=== PATIENT | male | born 2005 | race Caucasian/White ===

== ENCOUNTER 2024-11-20 15:19 | Emergency (ER) | payer SELFPAY ==
[2024-11-20 15:21] VITALS: BP 128/84
--- NOTE | 2024-11-20 16:17 | ED.GENMED ---
History of Present Illness
<Myesha Medina, DO - Last Filed: 11/20/24 16:23>
General
Chief Complaint: Skin Surface Trauma
Time Seen by Provider: 11/20/24 15:51
<Eloise Flood MD, Resident - Last Filed: 11/20/24 16:47>
General
Source: patient
History of Present Illness
History of Present Illness:
Patient was cleaning the floor with a broom stick that was bent, and accidentally snapped off with the extra pressure he applied on the floor to clean and no sharp edge of the distal fragment of broom ran through his right forearm skin crease at the
elbow leading to a laceration wound of about 2 X 0.4cm. Wound edges are clean, with some exposure of adipose tissue. His last tetanus shot was unknown, when he was a kid.
No known past medical history.
Past History
<Eloise Flood MD, Resident - Last Filed: 11/20/24 16:47>
Past History
ED Past Medical History: None and Other (dental issues, frequent dentist work. )
ED Past Surgical History: None
Social History
Tobacco: Non-smoker
Alcohol: None
Drug: None
Personal: Single
Living: with family
Family History
Family History: Unable to obtain (not pertinent)
Review of Systems
<Eloise Flood MD, Resident - Last Filed: 11/20/24 16:47>
Review of Systems
Allergies reviewed?: No
Other source history: family
All Other Systems: ROS reviewed and negative except as documented in HPI and ROS
Constitutional: Reports no symptoms
EENT: Reports no symptoms
Respiratory: Reports no symptoms
Skin: Reports other (Laceration wound on the arm.)
Neurological: Reports no symptoms
Phy Exam
<Eloise Flood MD, Resident - Last Filed: 11/20/24 16:47>
Physical Exam
Physical Exam:
See below
General Physical Exam
General Presentation: well appearing and no apparent distress
General age: appears stated age
General Skin: warm and other (Laceration wound of 2 x 0.4cm noted on the medial aspect of right forearm.)
General Habitus: normal
General Mental: alert
General Hydration: appears well hydrated
Cardiovascular Exam
Cardiovascular Exam: regular rate/rhythm, no gallop, no murmur, normal peripheral pulses and no carotid bruit
Pulmonary Exam
Pulmonary Exam: lungs clear, no respiratory distress, no rales, no crackles and no rhonchi
Gastrointestinal Exam
Gastrointestinal Exam: normal bowel sounds, non tender, soft and non distended
Musculoskeletal Exam
Musculoskeletal Exam: full ROM (in the right elbow, shoulder, intact sensations. )
Course
<Myesha Medina, DO - Last Filed: 11/20/24 16:23>
Vital Signs
Initial and Last Documented VS:
Initial Vital Signs
Temp Pulse Resp BP Pulse Ox
98.3 F 101 16 128/84 98
11/20/24 15:21 11/20/24 15:21 11/20/24 15:21 11/20/24 15:21 11/20/24 15:21
Last Documented Vital Signs
Temp Pulse Resp BP Pulse Ox
98.3 F 101 16 128/84 98
11/20/24 15:21 11/20/24 15:21 11/20/24 15:21 11/20/24 15:21 11/20/24 15:21
<Eloise Flood MD, Resident - Last Filed: 11/20/24 16:47>
Vital Signs
Initial and Last Documented VS:
Initial Vital Signs
Temp Pulse Resp BP Pulse Ox
98.3 F 101 16 128/84 98
11/20/24 15:21 11/20/24 15:21 11/20/24 15:21 11/20/24 15:21 11/20/24 15:21
Last Documented Vital Signs
Temp Pulse Resp BP Pulse Ox
98.3 F 101 16 128/84 98
11/20/24 15:21 11/20/24 15:21 11/20/24 15:21 11/20/24 15:21 11/20/24 15:21
Procedures
<Eloise Flood MD, Resident - Last Filed: 11/20/24 16:47>
Laceration Closure
Right Middle Anterior Medial Proximal Ulnar Arm:
Status of Wound: clean
Size of Wound in cm: 2
Description of Wound Edges: sharp and flap-well vascularized
Preparation: cleaned with saline
Anesthesia: 2% Lidocaine with epi
Revision/Debridement: routine- no revision
Type of Closure: single layer closure and interrupted sutures
Skin Closure Material: 4-0 nylon
Number of sutures: 4
<Eloise Flood MD, Resident - Last Filed: 11/20/24 16:47>
MDM/Problems Addressed
Differential Diagnosis Includes:
Laceration wound.
MDM/Problems Addressed:
With sutures.
<Eloise Flood MD, Resident - Last Filed: 11/20/24 16:47>
*Critical Care Note
Total Time (30-74mins, 75-104mins- exclusive of procedures): Not Applicable
<Eloise Flood MD, Resident - Last Filed: 11/20/24 16:47>
Comment
Comment:
Nonhealing, spontaneous suture dehiscence, wound infection, sepsis.
Tetanus shot given, reviewed with patient to limit the stretching, hyperextension of the hand.
Advised to follow-up with primary care physician for suture removal in 7 to 10 days
ED Attending Note
<Myesha Medina, DO - Last Filed: 11/20/24 16:23>
ED Attending Note
Patient seen and examined by attending physician: Yes
I performed the substantive portion of visit, reviewed & personally made and approve the management plan that is documented in note by myself or DANYELL.: Yes
I performed a history and physical exam of patient and discussed management with resident, I reviewed resident's note and agree with documented findings and plan of care.: Yes
ED Attending Note:
19-year-old male presenting to the emergency department for left upper extremity laceration. Prior to arrival patient was cleaning with a broom, which broke and cut him at the flexural surface of the elbow. Patient suffered about a 3 cm
laceration, subcutaneous. Tetanus status unknown, last updated when he was a child. Denies numbness or tingling to his arm. Denies any additional injuries. Denies fever. Vital signs on arrival significant for mild tachycardia.
On exam patient resting comfortably, no acute distress or discomfort. Clear laceration of the flexor surface of the left upper extremity, about 3 cm in length. No present neurovascular compromise. No issues with range of motion to the extremity.
Will probably irrigate and repair. Will update tetanus. Otherwise feel stable for discharge with outpatient supportive therapy
-
Portions of this chart may have been created with voice recognition software.� Occasional wrong word or��sound alike� substitutions may have occurred due to the inherent limitations of voice recognition software.
Discharge Plan
Interventions
Interventions:
*Risk Screen - Suicide Last Done: 11/20/24 15:21
*Neglect/Abuse Screening Last Done: 11/20/24 15:21
ED-Skin Assessment Last Done: 11/20/24 15:54
Discharge Date and Time
Print Language: MAURITIAN
[2024-11-20] MEDS: ADACEL 0.5 ML IM (16:42)
== END 2024-11-20 17:06 | disposition home or self-care (01) ==
LOC: EMR 15:19
PROVIDERS: EMERGENCY PHYSICIAN Student in an Organized Health Care Education/Training Program
DX: S51.812A Laceration without foreign body of left forearm, initial encounter (principal); W45.8XXA Other foreign body or object entering through skin, initial encounter; Y93.89 Activity, other specified; Z23 Encounter for immunization
CPT/HCPCS: 99282; 12002; 90471; 90715